=== PATIENT | male | born 1940 | race Caucasian/White ===

== ENCOUNTER 2017-02-23 10:13 | Inpatient (IN) ==
--- NOTE | 2017-02-20 20:34 | Discharge Summary ---
<DocalexeiJaky L - Last Filed: 02/23/17 07:57> Date of Encounter: 02/23/17 - Discharge Diagnosis (1) Arthritis of left hip Priority: Primary Status: Acute (2) HTN (hypertension) Priority: Secondary Status: Chronic Qualifiers: Hypertension type: essential hypertension Qualified Code(s): I10 - Essential (primary) hypertension (3) COPD (chronic obstructive pulmonary disease) Priority: Secondary Status: Chronic Qualifiers: COPD type: unspecified COPD Qualified Code(s): J44.9 - Chronic obstructive pulmonary disease, unspecified (4) CAD (coronary artery disease) Priority: Secondary Status: Chronic Qualifiers: Coronary Disease-Associated Artery/Lesion type: unspecified vessel or lesion type [place] vs. transplanted heart: unspecified whether [place] or transplanted heart Associated angina: angina presence unspecified Qualified Code(s): I25.10 - Atherosclerotic heart disease of [place] coronary artery without angina pectoris (5) Heart failure Priority: Secondary Status: Chronic Qualifiers: Heart failure type: unspecified heart failure type Heart failure chronicity : unspecified heart failure chronicity Qualified Code(s): I50.9 - Heart failure, unspecified (6) History of four vessel coronary artery bypass graft Priority: Secondary Status: Chronic (7) Chronic pain Priority: Secondary Status: Chronic Comments: OARRS reviewed. Plan to continue Methadone 10mg Daily, [place] 10/325 q 6 hours, last dose 01/27/17 #120. Will supplement with Meloxicam and Lidoderm patches - Discharge Medications Home Medications: Aspirin Enteric Coated [Aspirin EC] 325 mg PO DAILY #21 tablet. 02/20/17 [Rx] Albuterol Sulfate [Proair Hfa] 2 puff IH Q6H PRN 02/23/17 [History] Aspirin 81 mg PO DAILY 02/23/17 [History] Atorvastatin [Lipitor] 40 mg PO HS 02/23/17 [History] Budesonide/Formoterol 160/4.5 [Symbicort 160/4.5] 2 puff IH BIDR 02/23/17 [ History] HYDROcodone/Acet 10/325 mg [[place] 10-325 mg] 1 tab PO Q6H PRN 02/23/17 [History] LORazepam [Ativan] 0.5 mg PO TID 02/23/17 [History] Lidocaine Patch [Lidoderm 5% patch] 1 each TP DAILY #30 adh..patch 02/23/17 [Rx] Lisinopril [Zestril] 40 mg PO DAILY 02/23/17 [History] Meloxicam 15 mg PO DAILY #30 tablet 02/23/17 [Rx] Methadone 10 mg PO DAILY 02/23/17 [History] Metoprolol [Lopressor] 100 mg PO BID 02/23/17 [History] Omeprazole [PriLOSEC] 40 mg PO DAILY 02/23/17 [History] Sennosides [Senna] 17.2 mg PO BID 02/23/17 [History] Tamsulosin HCl [Flomax] 0.4 mg PO DAILY 02/23/17 [History] Tizanidine HCl 4 mg PO BID PRN 02/23/17 [History] amLODIPine [Norvasc] 5 mg PO DAILY 02/23/17 [History] Allergies/Adverse Reactions: Allergies Penicillins Allergy (Verified 02/25/17 07:42) Difficulty Breathing Primary care physician: Magi Velasquez MD - Patient Status Disposition: Transfer Inpatient Rehab Fac Condition: Good - Discharge Instructions Follow Up With: Magi Velasquez MD [Primary Care Provider] - - Hospital Course Hospital course: Mr. Kowalski is a 76 year old male - Time Spent with Patient Total time spent providing and/or coordinating discharge services: <Itz Mulligan - Last Filed: 02/26/17 06:48> Date of Encounter: 02/26/17 Time of Encounter: 06:47 - Discharge Diagnosis (1) Arthritis of left hip Priority: Primary Status: Acute (2) HTN (hypertension) Priority: Secondary Status: Chronic Qualifiers: Hypertension type: essential hypertension Qualified Code(s): I10 - Essential (primary) hypertension (3) COPD (chronic obstructive pulmonary disease) Priority: Secondary Status: Chronic Qualifiers: COPD type: unspecified COPD Qualified Code(s): J44.9 - Chronic obstructive pulmonary disease, unspecified (4) CAD (coronary artery disease) Priority: Secondary Status: Chronic Qualifiers: Coronary Disease-Associated Artery/Lesion type: unspecified vessel or lesion type [place] vs. transplanted heart: unspecified whether [place] or transplanted heart Associated angina: angina presence unspecified Qualified Code(s): I25.10 - Atherosclerotic heart disease of [place] coronary artery without angina pectoris (5) Heart failure Priority: Secondary Status: Chronic Qualifiers: Heart failure type: unspecified heart failure type Heart failure chronicity : unspecified heart failure chronicity Qualified Code(s): I50.9 - Heart failure, unspecified (6) Chronic pain Priority: Secondary Status: Chronic Qualifiers: Chronic pain type: other chronic pain Qualified Code(s): G89.29 - Other chronic pain (7) Acute blood loss anemia Priority: Primary Status: Acute Primary care physician: Magi Velasquez MD - Patient Status Functional capacity at discharge: uses cane/walker Overall status at discharge: patient is progressing back to baseline - Hospital Course Hospital course: Mr. Kowalski is a 76 year old male The patient had an uneventful postoperative course. They received antibiotics and physical therapy and were discharged in stable condition. There will follow -up in the office in 2 weeks. Patient with acute blood loss anemia and received 1 unit of blood, aspirin DVT prophylaxis - Time Spent with Patient Total time spent providing and/or coordinating discharge services:
[2017-02-23] MEDS ORDERED: Clindamycin 900 MG/50 ML 900 MG/50 ML IV.SOLN IVPB ONE (10:29)
[2017-02-23] MEDS ORDERED: Ringers Solution, Lactated 1,000 ML IVC SCH ×2 (10:30→16:17)
--- NOTE | 2017-02-23 10:40 | History & Physical Report ---
Date of Encounter: 02/23/17 Time of Encounter: 10:40 24 Hour HP Update - Instructions Instructions: If the History and Physical is less than 30 days old and was completed prior to A.M. admission and or procedure and has NOT been updated on calendar day of procedure please complete this update prior to performing procedure. - Update Patient reports changes in Medical Condition: No Changes in examination, assessment, or condition: No Changes in Medication: No Preop tests/diagnostics Reviewed: Yes Surgery Remains Indicated: Yes Consent for Planned Operative Procedure(s) Verified: Yes - Pre-Operative Checklist Preoperative Checklist Indicated: No Prophylactic Antibiotic Ordered: Yes Is VTE Prophylaxis Indicated?: Yes
[2017-02-23] MEDS ORDERED: Albuterol 2.5 MG/3 ML NEBULIZER IH ONE (10:47)
[2017-02-23] MEDS ORDERED: *HR* OxyCODONE Immed Rel 5 MG TABLET PO PRN (11:48)
[2017-02-23] MEDS ORDERED: *HR* FentaNYL (PF) 100 MCG/2 ML VIAL ONE (12:29)
[2017-02-23] MEDS ORDERED: *HR* Propofol 200 MG/20 ML VIAL IVP ONE (12:29)
[2017-02-23] MEDS ORDERED: Lidocaine -MPF 2% 2 ML VIAL ONE (12:29)
[2017-02-23] MEDS ORDERED: Dexamethasone 4 MG/ML VIAL ONE (12:29)
[2017-02-23] MEDS ORDERED: Ondansetron 4 MG/2 ML VIAL ONE (12:29)
[2017-02-23] MEDS ORDERED: *HR* Midazolam HCl 2 MG/2 ML VIAL ONE (12:29)
--- NOTE | 2017-02-23 12:35 | Anesthesia Evaluation PreOp ---
Date of Encounter: 02/23/17 Time of Encounter: 12:21 - Past History Planned Operation: L total hip Cardiac History: CHF (? reduced EF in 2004 - possibly 40%; listed in chart but patient is unaware and not present in 2003 TTE (however, patient has low grade systolic ejection murmur)), HTN, Hyperlipidemia, Cardiac Surgery (CABG x 4 in 2004), Other (very poor functional capacity) Pulmonary History: Former smoker, COPD (oxygen dependent) [employer] History: Denies Any Significant HX Other Medical History: Denies Any Significant HX Anesthesia History: No Prior Anesthetic Complications, Past Anesthesia Alcohol Use: none Drug use: none Medications and Allergies Aspirin Enteric Coated [Aspirin EC] 325 mg PO DAILY #21 tablet.dr 02/20/17 [Rx] Albuterol Sulfate [Proair Hfa] 2 puff IH Q6H PRN 02/23/17 [History] Aspirin 81 mg PO DAILY 02/23/17 [History] Atorvastatin [Lipitor] 40 mg PO HS 02/23/17 [History] Budesonide/Formoterol 160/4.5 [Symbicort 160/4.5] 2 puff IH BIDR 02/23/17 [ History] HYDROcodone/Acet 10/325 mg [[place] 10-325 mg] 1 tab PO Q6H PRN 02/23/17 [History] LORazepam [Ativan] 0.5 mg PO TID 02/23/17 [History] Lidocaine Patch [Lidoderm 5% patch] 1 each TP DAILY #30 adh..patch 02/23/17 [Rx] Lisinopril [Zestril] 40 mg PO DAILY 02/23/17 [History] Meloxicam 15 mg PO DAILY #30 tablet 02/23/17 [Rx] Methadone 10 mg PO DAILY 02/23/17 [History] Metoprolol [Lopressor] 100 mg PO BID 02/23/17 [History] Omeprazole [PriLOSEC] 40 mg PO DAILY 02/23/17 [History] Sennosides [Senna] 17.2 mg PO BID 02/23/17 [History] Tamsulosin HCl [Flomax] 0.4 mg PO DAILY 02/23/17 [History] Tizanidine HCl 4 mg PO BID PRN 02/23/17 [History] amLODIPine [Norvasc] 5 mg PO DAILY 02/23/17 [History] Allergies Penicillins Allergy (Unverified 02/10/17 14:44) Difficulty Breathing - Meds/Allergy Pre-op Review Medications Reviewed: Yes Allergies Reviewed: Yes Beta Blockers on Current Med List: Yes If Beta Blockers taken, Date/Time (Last Dose taken): 02-23-2017 metoprolol 5:30 Anesthesia Results - Labs Laboratory Tests 02/10/17 02/10/17 02/10/17 14:55 14:55 14:55 WBC 10.8 Hgb 13.8 Hct 38.9 Plt Count 282 PT 10.5 INR 1.0 APTT 28.0 Sodium 138 Potassium 4.5 Chloride 101 Carbon Dioxide 28 BUN 15 Creatinine 0.81 Est GFR ( Amer) > 60 Est GFR (Non-Af Amer) > 60 BUN/Creatinine Ratio 19 - Imaging EKG: report reviewed, image reviewed (SR; inferior) Anesthesia Exam Last Vital Signs Temp 97.8 F 02/23/17 10:32 Pulse 68 02/23/17 10:32 Resp 18 02/23/17 10:32 BP 110/61 02/23/17 10:32 Pulse Ox 94 02/23/17 10:32 Weight: 72 kg NPO (# of Hours): >> 8 hrs - HEENT Pupil (Motor): Pupils equal, EOMI Mallampati: III Teeth: Missing, Poor dentition Oral Opening: Greater than 3 - [employer] LOC: Oriented [employer] Motor: Normal RUE, Normal LUE, Normal RLE, Normal LLE, Normal Face - Cardiac Rhythm: Regular Murmur: Systolic (low grade systolic ejection murmur) - Pulmonary Breath Sounds: bilateral Clear Anesthesia Assess/Plan ASA Score: 4 Modified [place] Scale for Level of Consciousness: Cooperative, oriented, and tranquil Anesthetic Plan: General, Regional Monitoring Plan: Standard Monitors Recovery Plan: PACU
[2017-02-23] MEDS ORDERED: Bupivacaine/Clonidine Syringe 1 EACH SYRINGE ONE (12:48)
[2017-02-23] MEDS ORDERED: *HR* Etomidate 40 MG/20 ML VIAL IVP ONE (13:14)
[2017-02-23] MEDS ORDERED: *HR* Phenylephrine 10 MG/ML VIAL ONE (13:48)
--- NOTE | 2017-02-23 14:02 | Anesthesia Procedures ---
Date of Encounter: 02/23/17 Time of Encounter: 12:40 Procedures: Anesthesia - Nerve Block Procedure Date: 02/23/17 Time: 12:40 Allergies/Adv Reactions: Allergies Allergy/AdvReac Type Severity Reaction Status Date / Time Penicillins Allergy Difficulty Unverified 02/10/17 14:44 Breathing Pre-op Diagnosis: Left hip arthritis Surgical Procedure: Left total hip replacement Checklist: Correct Patient Identifier, Correct procedure, History checked Correct side: Left Blood Thinner: No Monitor Applied: EKG, BP, Pulse Oximetry Supplemental Oxygen via Nasal Cannula (L/min): 4 Sedation: Versed (mg): 2 Sedation: Fentanyl (mcg): 100 Indication: Post Op Analgesia Pre-op Neuro Deficits: No Block Type: Other (Fascia [place]liaca) Catheter placed: No Sterile Technique: Yes Ultrasound used: Yes Anatomy identified: Yes Visual spread of Local: Yes Blood on Needle Aspiration: No Smooth Injection of Local: Yes Pain with Injection of Local: No Prep: Chlorhexadine Needle: 22 x 50 mm Stimuplex Local: 0.25% Bupivicaine w/Clonidine 20 mcg/cc Volume (cc): 60 Number of Attempts: 1 Complications: None/effective block Vitals: VSS throughout. See nursing documentation. Comments: Verbal order Dr Mulligan for post op pain management. Patient tolerated procedure well.
[2017-02-23] MEDS ORDERED: *HR* Morphine 2 MG/ML SYRINGE IVP PRN (14:05)
[2017-02-23] MEDS ORDERED: Ondansetron 4 MG/2 ML VIAL IVP PRN (14:05)
[2017-02-23] MEDS ORDERED: Naloxone 0.4 MG/ML INJ IVP PRN ×2 (14:05→16:17)
--- NOTE | 2017-02-23 14:18 | Orthopedic Operative Note ---
Date of procedure: 02/23/17 Pre-op diagnosis: Left hip arthritis Post-op diagnosis: same Procedure: Procedure: Total Hip Replacment Estimated blood loss: 500 cc Hardware: Metal and polyethylene replacement. Biomet DM Cup: 56 G7 fin cup Femoral size 15 echo full profile lateralized stem Head: 0 head with Harmony Significant flexion contracture on exam limited internal and external rotation. Procedural Notes: Operative procedure: The patient was brought to the operating room and placed on the operating room table. After general anesthesia was administered the patient was placed in the lateral decubitus position with the operative leg up. All pressure points were padded appropriately and the head was stabilized in the neutral position. The operative extremity was prepped and draped in the sterile surgical fashion patient received IV antibiotic prior to skin incision. A standard posterior approach is made to the operative hip, the incision was made through the skin and subcutaneous tissue hemostasis was obtained with Bovie cautery. Using careful sharp dissection the fascia was identified and incised exposing the external rotators. The external rotators were released off the greater trochanter and tagged with #2 FiberWire suture. The capsule was T'd open and the hip was brought into internal rotation. Patient noted to have grade 4 arthritic changes femoral head. The femoral neck cut was made at the appropriate level. An anterior capsulotomy was performed for the anterior retractor. Soft tissues removed from the acetabulum. Patient noted to have grade 4 arthritic changes acetabulum. Acetabulum was first reamed medially, and then reamed in 15 degrees of anteversion and 45 degrees off the horizontal. It was reamed up to the appropriate size 56. The appropriate-sized 56 acetabular cup was impacted in place in 15 degrees of anteversion and 45 degrees off the horizontal. This had good fit and fixation. The hip was brought back in to internal rotation and prepared with the box maker paperboard followed by the canal finder followed by broaching process in 20 degrees anteversion. It was broached up to the appropriate size 15. The femoral implant was impacted in place in 20 degrees of anteversion. Trial reduction found the hip to be stable with 0 head and Harmony. The trials were removed and the real implants were impacted in place. The hip was reduced, patient had apparent equal leg lengths. The hip had excellent stability with forward flexion to 90 degrees adduction of 30 degrees and internal rotation of 60 degrees. The hip had no shuck. The hips after 2 minutes with a Betadine saline solution. It was irrigated out with 2 L of pulse irrigation. The external rotators were reattached to drill holes in the greater trochanter. Fascia was closed with a running #2 PDS suture. The deep tissue was irrigated and closed deep with #1 PDS suture superficially with 0 PDS suture and skin was closed with Dermabond and skin hosea. The patient was placed in a sterile dressing and abduction pillow. The patient was extubated and transferred to the recovery room in stable condition. Anesthesia: CHIDI Surgeon: Itz Mulligan Warehouse Loader: Jaky Belle Condition: stable Disposition: PACU
[2017-02-23] MEDS ORDERED: *HR* HYDROmorphone 2 MG/ML SYRINGE ONE (14:20)
[2017-02-23] MEDS: *HR* HYDROmorphone (PF) 1 MG/ML SYRINGE IVP PRN ×4 (14:45→15:21)
[2017-02-23] MEDS: *HR* Meperidine 25 MG/ML SYRINGE IVP PRN ×2 (14:50→15:04)
[2017-02-23 15:03] LABS: Hematocrit 36.2 % (37.5-50.1)
[2017-02-23] MEDS ORDERED: Ketamine *HR* 500 MG/10 ML MDV ONE (15:26)
--- NOTE | 2017-02-23 15:43 | Anesthesia Evaluation Post Op ---
Date of Encounter: 02/23/17 Time of Encounter: 15:43 - Vital Signs Vital Signs: Last Vital Signs Temp 99.0 F 02/23/17 14:40 Pulse 89 02/23/17 15:30 Resp 19 02/23/17 15:30 BP 126/63 02/23/17 15:30 Pulse Ox 96 02/23/17 15:30 - Lungs Lungs: Clear Ascult./Percussion - Airway Airway: Non-obstructed - Cardiovascular Regular Rate - Mental Status Mental Status: Alert & Oriented, Answers Appropriately - Pain Pain Scale: 5 - Nausea Vomiting Nausea Vomiting: Not Present - Hydration Hydration: NPO - Discharge PostOp Status: Transfer Patient to floor
[2017-02-23] MEDS ORDERED: Temazepam 15 MG CAPSULE PO PRN (16:17)
[2017-02-23] MEDS ORDERED: MOM Conc 10 ML UD.LIQ PO PRN (16:17)
[2017-02-23] MEDS ORDERED: tiZANidine 4 MG TABLET PO PRN (16:17)
[2017-02-23] MEDS ORDERED: Sennosides 8.6 MG TABLET PO PRN (16:17)
[2017-02-23] MEDS ORDERED: *HR* Enoxaparin 30 MG/0.3 ML SYRINGE SQ SCH (18:00)
[2017-02-23] MEDS: Clindamycin 900 MG/50 ML 900 MG/50 ML IV.SOLN IVPB SCH ×2 (18:53→23:32)
[2017-02-23] MEDS: *HR* HYDROcodone/Acet 10/325 mg TABLET PO PRN (18:53)
[2017-02-23] MEDS: Ascorbic Acid 500 MG TABLET PO SCH (18:54)
[2017-02-23] MEDS: *HR* Enoxaparin 30 MG/0.3 ML SYRINGE SQ SCH (18:54)
[2017-02-23] MEDS: *HR* LORazepam 0.5 MG TABLET PO SCH ×2 (18:54→22:27)
[2017-02-23] MEDS: Ketorolac 15 MG/ML VIAL IVP PRN (20:07)
[2017-02-23] MEDS: Sennosides 8.6 MG TABLET PO SCH (20:10)
[2017-02-23] MEDS: Budesonide/Formoterol 160/4.5 MDI IH SCH (20:23)
[2017-02-23] MEDS: Metoprolol 100 MG TABLET PO SCH (22:27)
[2017-02-24] MEDS: *HR* HYDROcodone/Acet 10/325 mg TABLET PO PRN ×4 (01:25→21:25)
[2017-02-24] MEDS: Ketorolac 15 MG/ML VIAL IVP PRN ×3 (03:38→19:19)
[2017-02-24 05:40] LABS: Hematocrit 28.1 % (37.5-50.1)
[2017-02-24 05:41] LABS: Hemoglobin 9.7 g/dL (12.9-16.9)
[2017-02-24] MEDS: *HR* Enoxaparin 30 MG/0.3 ML SYRINGE SQ SCH ×2 (05:44→17:33)
[2017-02-24 05:54] LABS: BUN/Creatinine Ratio 26 (6-26); Blood Urea Nitrogen 21 mg/dL (8-26); Calcium 8.1 mg/dL (8.6-10.8); Carbon Dioxide 27 mEq/L (19-29); Chloride 100 mEq/L (98-109); Glucose 148 mg/dL (70-99); Osmolality,Calculated 286 (280-300); Potassium 4.7 mEq/L (3.5-4.5); Sodium 135 mEq/L (136-145); eGFR For African Americans > 60 (> 60); eGFR For Non-African Americans > 60 (> 60)
[2017-02-24] MEDS: Budesonide/Formoterol 160/4.5 MDI IH SCH ×2 (07:55→19:43)
--- NOTE | 2017-02-24 08:04 | Orthopedics Progress Note ---
Date of Encounter: 02/24/17 Time of Encounter: 08:03 - Assessment and Plan (1) Arthritis of left hip Current Visit: Yes Status: Acute (2) HTN (hypertension) Current Visit: Yes Status: Chronic Qualifiers: Hypertension type: essential hypertension Qualified Code(s): I10 - Essential (primary) hypertension (3) COPD (chronic obstructive pulmonary disease) Current Visit: Yes Status: Chronic Qualifiers: COPD type: unspecified COPD Qualified Code(s): J44.9 - Chronic obstructive pulmonary disease, unspecified (4) CAD (coronary artery disease) Current Visit: Yes Status: Chronic Qualifiers: Coronary Disease-Associated Artery/Lesion type: unspecified vessel or lesion type [place] vs. transplanted heart: unspecified whether [place] or transplanted heart Associated angina: angina presence unspecified Qualified Code(s): I25.10 - Atherosclerotic heart disease of [place] coronary artery without angina pectoris (5) Heart failure Current Visit: Yes Status: Chronic Qualifiers: Heart failure type: unspecified heart failure type Heart failure chronicity : unspecified heart failure chronicity Qualified Code(s): I50.9 - Heart failure, unspecified (6) Chronic pain Current Visit: Yes Status: Chronic Qualifiers: Chronic pain type: other chronic pain Qualified Code(s): G89.29 - Other chronic pain Subjective Interval history: Patient was seen this morning doing well without complaints. Afebrile vital signs stable. Operative extremity: Neurovascularly intact Dressing clean dry and intact Calves nontender Assessment and plan: Continue with postoperative care Hematocrit 28 Objective Vital signs: Vital Signs Temp Pulse Resp BP Pulse Ox 02/24/17 06:59 98.6 F 70 18 89/53 95 02/24/17 04:00 97.8 F 62 16 90/50 99 02/24/17 00:00 97.3 F L 85 18 103/58 97 02/23/17 22:02 107/74 02/23/17 20:24 18 97 02/23/17 20:15 97 02/23/17 20:06 97.7 F 85 20 95/59 97 02/23/17 19:02 97.8 F 85 14 129/79 95 02/23/17 17:50 97.8 F 86 14 132/78 96 02/23/17 17:20 97.7 F 88 16 132/78 94 02/23/17 16:52 97.8 F 86 18 110/68 96 02/23/17 16:51 98.1 F 88 20 104/68 94 02/23/17 15:40 88 20 117/73 95 02/23/17 15:30 89 19 126/63 96 02/23/17 15:20 83 20 115/72 95 02/23/17 15:10 81 18 105/67 95 02/23/17 15:00 76 16 97/55 95 02/23/17 14:50 80 18 146/96 94 02/23/17 14:40 99.0 F 72 18 158/93 95 02/23/17 10:32 97.8 F 68 18 110/61 94 Intake and Output 02/23/17 02/24/17 02/24/17 23:59 07:59 15:59 Intake Total 150 / 150 Output Total 50 / 50 Balance 100 / 100 Intake: IV Fluids 50 / 50 Cleocin Premix 900 MG/50 50 / 50 ML 900 mg In 50 ml @ 50 mls/hr IVPB Q8HR [facility] Rx#: [id number] Oral 100 / 100 Output: Urine 50 / 50 - Labs CBC & BMP: 02/24/17 05:08 02/24/17 05:08 Labs: Abnormal lab results Hgb 9.7 g/dL (12.9-16.9) L D 02/24/17 05:08 Hct 28.1 % (37.5-50.1) L 02/24/17 05:08 Sodium 135 mEq/L (136-145) L 02/24/17 05:08 Potassium 4.7 mEq/L (3.5-4.5) H 02/24/17 05:08 Glucose 148 mg/dL (70-99) H 02/24/17 05:08 Calcium 8.1 mg/dL (8.6-10.8) L 02/24/17 05:08 - VTE Documentation of Mechanical Device: Venous foot pump, device Consult Discharge Plan - Plan Referrals: Magi Velasquez MD [Primary Care Provider] -
[2017-02-24] MEDS: Multivit/Ca/Min/Fe/FA 1 TAB TABLET PO SCH (08:38)
[2017-02-24] MEDS: Metoprolol 100 MG TABLET PO SCH ×2 (08:38→21:25)
[2017-02-24] MEDS: Aspirin 81 MG TAB.CHEW PO SCH (08:38)
[2017-02-24] MEDS: Sennosides 8.6 MG TABLET PO SCH ×2 (08:38→21:25)
[2017-02-24] MEDS: *HR* LORazepam 0.5 MG TABLET PO SCH ×3 (08:38→21:25)
[2017-02-24] MEDS: *HR* Methadone 10 MG TABLET PO SCH (08:38)
[2017-02-24] MEDS: amLODIPine 5 MG TABLET PO SCH (08:38)
[2017-02-24] MEDS: Ascorbic Acid 500 MG TABLET PO SCH ×2 (08:38→17:33)
[2017-02-24] MEDS: Lisinopril 20 MG TABLET PO SCH (08:39)
[2017-02-25] MEDS: Ketorolac 15 MG/ML VIAL IVP PRN ×4 (01:23→22:00)
[2017-02-25] MEDS: *HR* HYDROcodone/Acet 10/325 mg TABLET PO PRN ×3 (03:38→18:24)
[2017-02-25] MEDS: *HR* Enoxaparin 30 MG/0.3 ML SYRINGE SQ SCH ×2 (05:42→20:12)
[2017-02-25 06:02] LABS: Hematocrit 23.9 % (37.5-50.1); Hemoglobin 8.3 g/dL (12.9-16.9)
[2017-02-25 06:13] LABS: BUN/Creatinine Ratio 32 (6-26); Blood Urea Nitrogen 25 mg/dL (8-26); Calcium 7.9 mg/dL (8.6-10.8); Carbon Dioxide 29 mEq/L (19-29); Chloride 98 mEq/L (98-109); Glucose 181 mg/dL (70-99); Osmolality,Calculated 283 (280-300); Sodium 132 mEq/L (136-145); eGFR For African Americans > 60 (> 60); eGFR For Non-African Americans > 60 (> 60)
--- NOTE | 2017-02-25 06:42 | Orthopedics Progress Note ---
Date of Encounter: 02/25/17 Time of Encounter: 06:41 - Assessment and Plan (1) Arthritis of left hip Current Visit: Yes Status: Acute (2) HTN (hypertension) Current Visit: Yes Status: Chronic Qualifiers: Hypertension type: essential hypertension Qualified Code(s): I10 - Essential (primary) hypertension (3) COPD (chronic obstructive pulmonary disease) Current Visit: Yes Status: Chronic Qualifiers: COPD type: unspecified COPD Qualified Code(s): J44.9 - Chronic obstructive pulmonary disease, unspecified (4) CAD (coronary artery disease) Current Visit: Yes Status: Chronic Qualifiers: Coronary Disease-Associated Artery/Lesion type: unspecified vessel or lesion type [place] vs. transplanted heart: unspecified whether [place] or transplanted heart Associated angina: angina presence unspecified Qualified Code(s): I25.10 - Atherosclerotic heart disease of [place] coronary artery without angina pectoris (5) Heart failure Current Visit: Yes Status: Chronic Qualifiers: Heart failure type: unspecified heart failure type Heart failure chronicity : unspecified heart failure chronicity Qualified Code(s): I50.9 - Heart failure, unspecified (6) Chronic pain Current Visit: Yes Status: Chronic Qualifiers: Chronic pain type: other chronic pain Qualified Code(s): G89.29 - Other chronic pain (7) Acute blood loss anemia Current Visit: Yes Status: Acute Subjective Interval history: Patient was seen this morning doing well without complaints. Afebrile vital signs stable. Operative extremity: Neurovascularly intact Dressing clean dry and intact Calves nontender Assessment and plan: Continue with postoperative care Hematocrit 23 transfuse 2 units dc tomorrow Objective Vital signs: Vital Signs Temp Pulse Resp BP Pulse Ox 02/25/17 05:45 98.0 F 89 16 114/51 99 02/24/17 23:48 100 02/24/17 23:44 97.7 F 93 20 97/63 100 02/24/17 20:33 98.9 F 83 20 101/65 96 02/24/17 19:43 16 96 02/24/17 14:38 98.4 F 68 16 91/56 96 02/24/17 11:40 98.2 F 62 16 82/49 98 02/24/17 10:50 18 96 02/24/17 07:55 18 96 02/24/17 06:59 98.6 F 70 18 89/53 95 Intake and Output 02/24/17 02/24/17 02/25/17 15:59 23:59 07:59 Intake Total 640 / 640 Output Total 300 / 300 175 / 175 Balance 340 / 340 -175 / -175 Intake: Oral 640 / 640 Output: Urine 300 / 300 175 / 175 Other: Meal Lunch Percent of Meal Consumed 50% Stool Size Moderate # Voids 1 - Labs CBC & BMP: 02/25/17 05:39 02/25/17 05:39 Labs: Abnormal lab results Hgb 8.3 g/dL (12.9-16.9) L 02/25/17 05:39 Hct 23.9 % (37.5-50.1) L 02/25/17 05:39 Sodium 132 mEq/L (136-145) L 02/25/17 05:39 BUN/Creatinine Ratio 32 (6-26) H 02/25/17 05:39 Glucose 181 mg/dL (70-99) H 02/25/17 05:39 Calcium 7.9 mg/dL (8.6-10.8) L 02/25/17 05:39 - VTE Documentation of Mechanical Device: Venous foot pump, device Consult Discharge Plan - Plan Referrals: Magi Velasquez MD [Primary Care Provider] -
[2017-02-25] MEDS: Aspirin 81 MG TAB.CHEW PO SCH (07:53)
[2017-02-25] MEDS: *HR* LORazepam 0.5 MG TABLET PO SCH ×3 (07:53→20:11)
[2017-02-25] MEDS: Multivit/Ca/Min/Fe/FA 1 TAB TABLET PO SCH (07:53)
[2017-02-25] MEDS: *HR* Methadone 10 MG TABLET PO SCH (07:53)
[2017-02-25] MEDS: Ascorbic Acid 500 MG TABLET PO SCH ×2 (07:53→18:24)
[2017-02-25] MEDS: Lisinopril 20 MG TABLET PO SCH (08:02)
[2017-02-25] MEDS: amLODIPine 5 MG TABLET PO SCH (08:02)
[2017-02-25] MEDS: Sennosides 8.6 MG TABLET PO SCH ×2 (08:02→20:12)
[2017-02-25] MEDS: Metoprolol 100 MG TABLET PO SCH ×2 (08:02→20:11)
[2017-02-25] MEDS: Budesonide/Formoterol 160/4.5 MDI IH SCH ×2 (11:17→22:02)
[2017-02-25] MEDS ORDERED: 0.9 % Sodium Chloride 250 ML ONE (11:37)
[2017-02-25] MEDS: Ondansetron 4 MG/2 ML VIAL IVP PRN (13:29)
[2017-02-25 15:43] LABS: Hematocrit 26.8 % (37.5-50.1); Hemoglobin 9.3 g/dL (12.9-16.9)
[2017-02-25 19:04] LABS: Hemoglobin 9.7 g/dL (12.9-16.9)
[2017-02-25 19:19] LABS: BUN/Creatinine Ratio 22 (6-26); Blood Urea Nitrogen 17 mg/dL (8-26); Calcium 7.9 mg/dL (8.6-10.8); Carbon Dioxide 26 mEq/L (19-29); Chloride 98 mEq/L (98-109); Glucose 269 mg/dL (70-99); Osmolality,Calculated 285 (280-300); Potassium 4.1 mEq/L (3.5-4.5); Sodium 132 mEq/L (136-145); eGFR For African Americans > 60 (> 60); eGFR For Non-African Americans > 60 (> 60)
[2017-02-26] MEDS: *HR* HYDROcodone/Acet 10/325 mg TABLET PO PRN ×2 (00:46→06:57)
[2017-02-26] MEDS: Ketorolac 15 MG/ML VIAL IVP PRN ×2 (04:06→10:15)
[2017-02-26] MEDS: *HR* Enoxaparin 30 MG/0.3 ML SYRINGE SQ SCH (04:08)
[2017-02-26 06:45] VITALS: BP 124/76
[2017-02-26] MEDS: Budesonide/Formoterol 160/4.5 MDI IH SCH (08:00)
[2017-02-26] MEDS: Multivit/Ca/Min/Fe/FA 1 TAB TABLET PO SCH (08:34)
[2017-02-26] MEDS: Ascorbic Acid 500 MG TABLET PO SCH (08:34)
[2017-02-26] MEDS: *HR* LORazepam 0.5 MG TABLET PO SCH (08:35)
[2017-02-26] MEDS: *HR* Methadone 10 MG TABLET PO SCH (08:35)
[2017-02-26] MEDS: amLODIPine 5 MG TABLET PO SCH (08:35)
[2017-02-26] MEDS: Metoprolol 100 MG TABLET PO SCH (08:35)
[2017-02-26] MEDS: Aspirin 81 MG TAB.CHEW PO SCH (08:35)
[2017-02-26] MEDS: Lisinopril 20 MG TABLET PO SCH (08:36)
[2017-02-26] MEDS: Sennosides 8.6 MG TABLET PO SCH (08:37)
[2017-02-26] MEDS: Ondansetron 4 MG/2 ML VIAL IVP PRN (08:54)
== END 2017-02-26 12:44 | DRG 470 ==
LOC: SAMDAY 10:13 → 3NENU 16:14
PROVIDERS: ADMIT Orthopaedic Surgery; ATTEND Orthopaedic Surgery